=== PATIENT | female | born 1965 | race Caucasian/White ===

== ENCOUNTER 2021-01-06 10:30 | Inpatient (IN) ==
[2021-01-06] MEDS ORDERED: *HR* FentaNYL (PF) 100 MCG/2 ML VIAL IVP ONE (12:07)
[2021-01-06] MEDS ORDERED: Ondansetron 4 MG/2 ML VIAL IVP ONE (12:08)
[2021-01-06] MEDS: 0.9 % Sodium Chloride 1,000 ML IVC SCH ×2 (12:55→19:36)
[2021-01-06 12:59] LABS: Basophils # 0.1 K/mcL (0.0-0.2); Basophils % 0.9 %; Eosinophils # 0.3 K/mcL (0.0-0.6); Eosinophils % 3.4 %; Hematocrit 42.6 % (35.3-44.9); Hemoglobin 14.1 g/dL (11.5-15.4); Immature Granulocytes % 0.2 % (0-4); Lymphocytes # 3.3 K/mcL (0.6-4.6); Lymphocytes % 36.7 %; Mean Corpuscular HGB Conc 33.1 g/dL (31.6-35.5); Mean Corpuscular Hemoglobin 31.4 pg (28.0-33.3); Mean Corpuscular Volume 94.9 fL (83.0-100.0); Mean Platelet Volume 10.1 fL (9.4-12.4); Monocytes # 0.8 K/mcL (0.0-1.3); Monocytes % 8.2 %; Neutrophils # 4.6 K/mcL (1.6-8.9); Platelet Count 376 K/mcL (140-400); Red Blood Count 4.49 M/mcL (3.82-4.97); Red Cell Distribution Width 15.6 % (11.5-14.5); Segmented Neutrophils % 50.6 %
[2021-01-06 13:03] LABS: White Blood Count 9.1 K/mcL (4.3-11.1)
[2021-01-06 13:18] LABS: BUN/Creatinine Ratio 21 (6-26); Blood Urea Nitrogen 19 mg/dL (6-20); C-Reactive Protein 30 mg/L (Less than 10); Carbon Dioxide 27 mEq/L (23-29); Chloride 104 mEq/L (98-107); Glucose 74 mg/dL (70-105); Osmolality,Calculated 289 (280-300); Potassium 3.7 mEq/L (3.5-5.1); Sodium 139 mEq/L (136-145); eGFR For African Americans > 60 (> 60); eGFR For Non-African Americans > 60 (> 60)
[2021-01-06] MEDS ORDERED: Naloxone 0.4 MG/ML INJ IVP PRN (13:26)
[2021-01-06] MEDS ORDERED: Ondansetron 4 MG/2 ML VIAL IVP PRN (13:26)
[2021-01-06] MEDS ORDERED: Gadolinium Contrast Agent (WT Based) IV PRN (15:05)
[2021-01-06] MEDS: amLODIPine 5 MG TABLET PO SCH (20:22)
[2021-01-06] MEDS: Nicotine 14 MG PATCH.TD24 TD SCH (20:27)
[2021-01-06] MEDS: *HR* OxyCODONE Immed Rel 5 MG TABLET PO PRN (20:28)
[2021-01-07] MEDS: 0.9 % Sodium Chloride 1,000 ML IVC SCH ×2 (04:17→12:20)
[2021-01-07] MEDS: *HR* OxyCODONE Immed Rel 5 MG TABLET PO PRN (04:29)
[2021-01-07 08:13] LABS: INR 1.2; Prothrombin Time 13.9 Seconds (9.4-12.1)
[2021-01-07 08:43] LABS: Chol/HDL Ratio 5.2 (0-4.9)
[2021-01-07 08:44] LABS: Albumin 3.1 g/dL (3.5-5.7); Albumin/Globulin Ratio 0.9 (1.1-2.2); Bilirubin,Direct 0.1 mg/dL (0.0-0.2); Bilirubin,Indirect 0.3 mg/dL (0.0-1.0); Bilirubin,Total 0.4 mg/dL (0.3-1.0); Globulin 3.4 g/dL (2.4-3.5); Total Protein 6.5 g/dL (6.4-8.9)
[2021-01-07] MEDS ORDERED: Metoprolol XL (24 HR) Succ 25 MG TAB.ER.24H PO SCH (09:00)
[2021-01-07] MEDS: amLODIPine 5 MG TABLET PO SCH ×2 (09:20→09:27)
[2021-01-07] MEDS: lisinopriL 20 MG TABLET PO SCH (09:26)
[2021-01-07] MEDS: PARoxetine 30 MG TABLET PO SCH (09:26)
[2021-01-07] MEDS: Gabapentin 300 MG CAPSULE PO SCH ×3 (09:26→22:09)
[2021-01-07] MEDS: Nicotine 14 MG PATCH.TD24 TD SCH (09:27)
[2021-01-07] MEDS: diazePAM 5 MG TABLET PO PRN ×2 (09:31→22:14)
[2021-01-07 09:57] LABS: Hepatitis B Surface Antigen Nonreactive (Nonreactive)
[2021-01-07 10:27] LABS: Hepatitis B Core IgM Nonreactive (Nonreactive)
[2021-01-07 10:28] LABS: Hepatitis A Antibody IgM Nonreactive (Nonreactive)
[2021-01-07 11:56] LABS: Hepatitis C Virus Antibody Reactive (Nonreactive)
[2021-01-07] MEDS: *HR* HYDROcodone/Acet 5/325 mg TABLET PO PRN ×2 (14:44→22:09)
[2021-01-07] MEDS: BuPROPion SR (12 HR) 150 MG TABLET PO SCH (22:09)
[2021-01-08 04:29] LABS: Basophils % 0.6 %; Eosinophils # 0.3 K/mcL (0.0-0.6); Eosinophils % 4.4 %; Hematocrit 40.9 % (35.3-44.9); Hemoglobin 13.3 g/dL (11.5-15.4); Immature Granulocytes % 0.2 % (0-4); Lymphocytes # 3.3 K/mcL (0.6-4.6); Lymphocytes % 49.7 %; Mean Corpuscular HGB Conc 32.5 g/dL (31.6-35.5); Mean Corpuscular Hemoglobin 31.1 pg (28.0-33.3); Mean Corpuscular Volume 95.8 fL (83.0-100.0); Monocytes # 0.4 K/mcL (0.0-1.3); Monocytes % 5.5 %; Neutrophils # 2.6 K/mcL (1.6-8.9); Platelet Count 316 K/mcL (140-400); Red Blood Count 4.27 M/mcL (3.82-4.97); Red Cell Distribution Width 15.3 % (11.5-14.5); Segmented Neutrophils % 39.6 %; White Blood Count 6.6 K/mcL (4.3-11.1)
[2021-01-08 04:47] LABS: BUN/Creatinine Ratio 19 (6-26); Blood Urea Nitrogen 13 mg/dL (6-20); Calcium 8.5 mg/dL (8.6-10.3); Carbon Dioxide 25 mEq/L (23-29); Chloride 110 mEq/L (98-107); Glucose 98 mg/dL (70-105); Magnesium 1.6 mg/dL (1.6-2.6); Osmolality,Calculated 294 (280-300); Potassium 3.7 mEq/L (3.5-5.1); Sodium 142 mEq/L (136-145); eGFR For African Americans > 60 (> 60); eGFR For Non-African Americans > 60 (> 60)
[2021-01-08 04:53] LABS: Platelet Estimate Normal (Normal); Reactive Lymphocytes Present (Not Present)
[2021-01-08] MEDS: *HR* OxyCODONE Immed Rel 5 MG TABLET PO PRN ×3 (09:06→23:12)
[2021-01-08] MEDS: Gabapentin 300 MG CAPSULE PO SCH ×3 (09:07→20:13)
[2021-01-08] MEDS: amLODIPine 5 MG TABLET PO SCH ×2 (09:07→09:18)
[2021-01-08] MEDS: lisinopriL 20 MG TABLET PO SCH (09:07)
[2021-01-08] MEDS: BuPROPion SR (12 HR) 150 MG TABLET PO SCH ×2 (09:07→20:13)
[2021-01-08] MEDS: PARoxetine 30 MG TABLET PO SCH (09:07)
[2021-01-08] MEDS: Nicotine 14 MG PATCH.TD24 TD SCH (09:08)
[2021-01-08] MEDS: diazePAM 5 MG TABLET PO PRN (09:10)
[2021-01-08] MEDS: *HR* HYDROcodone/Acet 5/325 mg TABLET PO PRN ×2 (12:47→20:13)
[2021-01-08] MEDS: *HR* Heparin 5,000 UNIT/ML VIAL SQ SCH ×2 (15:21→20:13)
[2021-01-08] MEDS: cefTRIAXone 2,000 MG in 0.9 % Sodium Chloride Mini Bag 100 ML IVPB SCH (17:33)
[2021-01-09 02:20] LABS: Basophils # 0.1 K/mcL (0.0-0.2); Basophils % 0.8 %; Eosinophils # 0.3 K/mcL (0.0-0.6); Eosinophils % 3.9 %; Hematocrit 38.1 % (35.3-44.9); Hemoglobin 11.9 g/dL (11.5-15.4); Immature Granulocytes % 0.4 % (0-4); Lymphocytes # 3.9 K/mcL (0.6-4.6); Lymphocytes % 47.2 %; Mean Corpuscular HGB Conc 31.2 g/dL (31.6-35.5); Mean Corpuscular Hemoglobin 30.2 pg (28.0-33.3); Mean Corpuscular Volume 96.7 fL (83.0-100.0); Mean Platelet Volume 10.3 fL (9.4-12.4); Monocytes # 0.5 K/mcL (0.0-1.3); Monocytes % 5.9 %; Neutrophils # 3.5 K/mcL (1.6-8.9); Platelet Count 295 K/mcL (140-400); Red Blood Count 3.94 M/mcL (3.82-4.97); Red Cell Distribution Width 15.2 % (11.5-14.5); Segmented Neutrophils % 41.8 %; White Blood Count 8.3 K/mcL (4.3-11.1)
[2021-01-09 02:39] LABS: BUN/Creatinine Ratio 19 (6-26); Blood Urea Nitrogen 15 mg/dL (6-20); Calcium 8.2 mg/dL (8.6-10.3); Carbon Dioxide 26 mEq/L (23-29); Chloride 106 mEq/L (98-107); Glucose 100 mg/dL (70-105); Magnesium 1.6 mg/dL (1.6-2.6); Osmolality,Calculated 289 (280-300); Potassium 3.6 mEq/L (3.5-5.1); Sodium 139 mEq/L (136-145); eGFR For African Americans > 60 (> 60); eGFR For Non-African Americans > 60 (> 60)
[2021-01-09] MEDS: *HR* HYDROcodone/Acet 5/325 mg TABLET PO PRN ×2 (02:55→11:21)
[2021-01-09] MEDS: *HR* Heparin 5,000 UNIT/ML VIAL SQ SCH ×3 (05:03→21:37)
[2021-01-09] MEDS: cefTRIAXone 2,000 MG in 0.9 % Sodium Chloride Mini Bag 100 ML IVPB SCH ×2 (05:03→18:29)
[2021-01-09] MEDS: PARoxetine 30 MG TABLET PO SCH (09:22)
[2021-01-09] MEDS: amLODIPine 5 MG TABLET PO SCH (09:22)
[2021-01-09] MEDS: BuPROPion SR (12 HR) 150 MG TABLET PO SCH ×2 (09:23→21:38)
[2021-01-09] MEDS: lisinopriL 20 MG TABLET PO SCH (09:23)
[2021-01-09] MEDS: Nicotine 14 MG PATCH.TD24 TD SCH (09:23)
[2021-01-09] MEDS: Gabapentin 300 MG CAPSULE PO SCH ×3 (09:23→21:38)
[2021-01-09] MEDS: *HR* OxyCODONE Immed Rel 5 MG TABLET PO PRN ×2 (09:40→16:29)
[2021-01-09] MEDS ORDERED: Lidocaine -MPF 1% 5 ML AMPUL INFILT ONE (11:53)
[2021-01-09] MEDS: diazePAM 5 MG TABLET PO PRN (21:42)
[2021-01-10] MEDS: *HR* OxyCODONE Immed Rel 5 MG TABLET PO PRN ×3 (00:36→19:57)
[2021-01-10] MEDS: Vancomycin 1,250 MG/262.5 ML IV.SOLN IVPB SCH ×3 (01:31→23:20)
[2021-01-10] MEDS: *HR* HYDROcodone/Acet 5/325 mg TABLET PO PRN ×2 (03:17→18:00)
[2021-01-10] MEDS: *HR* Heparin 5,000 UNIT/ML VIAL SQ SCH ×3 (06:11→23:14)
[2021-01-10] MEDS: cefTRIAXone 2,000 MG in 0.9 % Sodium Chloride Mini Bag 100 ML IVPB SCH (06:12)
[2021-01-10] MEDS: BuPROPion SR (12 HR) 150 MG TABLET PO SCH ×2 (09:27→19:57)
[2021-01-10] MEDS: Gabapentin 300 MG CAPSULE PO SCH ×3 (09:27→19:56)
[2021-01-10] MEDS: Nicotine 14 MG PATCH.TD24 TD SCH (09:27)
[2021-01-10] MEDS: PARoxetine 30 MG TABLET PO SCH (09:28)
[2021-01-10] MEDS: lisinopriL 20 MG TABLET PO SCH (09:28)
[2021-01-10] MEDS: amLODIPine 5 MG TABLET PO SCH (09:28)
[2021-01-10 09:47] LABS: BUN/Creatinine Ratio 23 (6-26); Blood Urea Nitrogen 20 mg/dL (6-20); Calcium 8.6 mg/dL (8.6-10.3); Carbon Dioxide 27 mEq/L (23-29); Chloride 106 mEq/L (98-107); Glucose 154 mg/dL (70-105); Osmolality,Calculated 294 (280-300); Potassium 3.6 mEq/L (3.5-5.1); Sodium 139 mEq/L (136-145); eGFR For African Americans > 60 (> 60); eGFR For Non-African Americans > 60 (> 60)
[2021-01-10] MEDS: diazePAM 5 MG TABLET PO PRN ×2 (09:49→19:52)
[2021-01-10] MEDS: levoFLOXacin 750 MG/150 ML 750 MG/150 ML BAG IVPB SCH (13:51)
[2021-01-10 15:23] LABS: Hepatitis B Surface Antigen Nonreactive (Nonreactive)
[2021-01-10 15:52] LABS: Hepatitis B Core IgM Nonreactive (Nonreactive)
[2021-01-10 17:14] LABS: Hepatitis A Antibody IgM Nonreactive (Nonreactive)
[2021-01-10 17:22] LABS: Hepatitis C Virus Antibody Reactive (Nonreactive)
[2021-01-10] MEDS: Sennosides/Docusate Sodium TABLET PO SCH (19:56)
[2021-01-10] MEDS ORDERED: Morphine Sulfate 2 MG/ML SYRINGE IVP ONE (23:38)
[2021-01-11] MEDS: *HR* OxyCODONE Immed Rel 5 MG TABLET PO PRN ×2 (03:32→14:45)
[2021-01-11] MEDS: *HR* Heparin 5,000 UNIT/ML VIAL SQ SCH (05:37)
[2021-01-11] MEDS: *HR* HYDROcodone/Acet 5/325 mg TABLET PO PRN ×2 (05:37→11:40)
[2021-01-11 06:45] VITALS: BP 105/57
[2021-01-11] MEDS: BuPROPion SR (12 HR) 150 MG TABLET PO SCH (08:27)
[2021-01-11] MEDS: Nicotine 14 MG PATCH.TD24 TD SCH (08:27)
[2021-01-11] MEDS: Gabapentin 300 MG CAPSULE PO SCH (08:27)
[2021-01-11] MEDS: Sennosides/Docusate Sodium TABLET PO SCH (08:28)
[2021-01-11] MEDS: amLODIPine 5 MG TABLET PO SCH (08:28)
[2021-01-11] MEDS: PARoxetine 30 MG TABLET PO SCH (08:28)
[2021-01-11] MEDS: lisinopriL 20 MG TABLET PO SCH (08:28)
[2021-01-11] MEDS: Vancomycin 1,250 MG/262.5 ML IV.SOLN IVPB SCH (11:40)
[2021-01-11] MEDS: levoFLOXacin 750 MG/150 ML 750 MG/150 ML BAG IVPB SCH (11:46)
== END 2021-01-11 15:49 | disposition home health service (06) | DRG 95 ==
LOC: EMEROOARM 10:30 → 3NENU 10:30 → SUATTDRO 16:42 → 3NENU 17:46
PROVIDERS: ADMIT Internal Medicine; ATTEND Internal Medicine